=== PATIENT | male | born 1985 | race Caucasian/White ===

== ENCOUNTER 2018-06-06 11:31 | Emergency (ER) | payer OTHER ==
[~2018-06-06] VITALS: Ht 162.6 cm; Wt 77.4 kg
[2018-06-06 11:33] VITALS: BP 147/96
--- NOTE | 2018-06-06 11:55 | ED.ADGEN ---
Adult General Chief Complaint Chief Complaint left shoulder pain HPI HPI 32-year-old male presents the emergency department with sudden onset nonradiating left anterior shoulder pain that started while doing bench press at the gym. He admits to previous episodes and was diagnosed with rotator cuff syndrome but has not had this for over a year. Review of Systems Review of Systems All other systems were reviewed and found to be within normal limits, except as documented in this note. Family History Family History noncontributory Current Medications Current Medications none Allergies Allergies none Physical Exam Physical Exam GENERAL: Awake, alert, no acute distress HEAD/EYES: Normocephalic, EOMI ENT Airway patent, mucous membranes moist NECK: Supple, no meningismus, no swelling RESP: No respiratory distress, symmetrical expansion CV: Normal peripheral perfusion ABD/GI: Non distended EXT: SALONI: Pain with palpation or in the biceps groove, tenderness reproduced with engaging rotator cuff muscles SKIN: Warm, dry NEURO: Normal motor observed PSYCH: Cooperative, appropriate affect Current Patient Data Vital Signs reviewed EKG EKG [] Radiology/Procedures Radiology/Procedures [] Course & Med Decision Making Course & Med Decision Making Pertinent Labs and Imaging studies reviewed. (See chart for details) Differential diagnosis includes but not limited to: Acute rotator cuff strain/ tear, impingement syndrome, pectoralis strain, pectoralis muscle tear Final Impression Final Impression Acute rotator cuff strain Plan: f/u with pcp for mri if indicated, NSAIDs, prednisone low dose, muscle relaxer Dragon Disclaimer Dragon Disclaimer This electronic medical record was generated, in whole or in part, using a voice recognition dictation system. GOKUL PORTER DO Jun 06, 2018 11:55
[2018-06-06] MEDS ORDERED: PRED-299 PO (12:00)
[2018-06-06] MEDS ORDERED: NAPR-695 PO (12:00)
[2018-06-06] MEDS ORDERED: METH-37 PO (12:00)
== END 2018-06-06 12:02 | disposition home or self-care (01) ==
LOC: ER 11:31
DX: S46.012A Strain of muscle(s) and tendon(s) of the rotator cuff of left shoulder, initial encounter (principal); X50.3XXA Overexertion from repetitive movements, initial encounter; Y93.B1 Activity, exercise machines primarily for muscle strengthening; Y92.89 Other specified places as the place of occurrence of the external cause; Y99.8 Other external cause status
CPT/HCPCS: 99283